=== PATIENT | female | born 1990 | race Caucasian/White ===

== ENCOUNTER → 2016-10-19 | Outpatient (CLI) | payer BC ==
--- NOTE | 2016-10-19 09:55 | DIAGNOSTIC IMAGING REPORT ---
LEFT SHOULDER 3 VIEWS CLINICAL HISTORY: Chronic left shoulder pain. FINDINGS: 3 views of the left shoulder are obtained. No prior studies are available for comparison at the time of dictation. The skeletal structures are well mineralized. No fracture or dislocation is seen. The glenohumeral and acromioclavicular joints appear maintained. The overlying soft tissues are within normal limits. The imaged left lung parenchyma appears clear. IMPRESSION: Unremarkable radiographic assessment of the left shoulder. Electronically signed by: Jose Paul M.D. 10/19/2016 9:53 AM Dictated Date/Time: 10/19/2016 9:53 AM
== END | disposition home or self-care (01) ==
LOC: C.RDSM 09:40
PROVIDERS: ATTEND Internal Medicine
DX: M25.519 Pain in unspecified shoulder (principal)

== ENCOUNTER → 2017-04-24 | Outpatient (CLI) | payer OTHER | END | disposition home or self-care (01) | LOC: C.PAPS 16:38 | PROVIDERS: ATTEND Physician Assistant | DX: Z12.4 Encounter for screening for malignant neoplasm of cervix (principal); R87.610 Atypical squamous cells of undetermined significance on cytologic smear of cervix (ASC-US) ==

== ENCOUNTER 2020-11-13 10:10 | Inpatient (IN) ==
[2020-11-13] MEDS ORDERED: OXYTOCIN 30 UNITS/500 ML BAG IV PRN ×2 (15:22)
--- NOTE | 2020-11-13 15:26 | History & Physical Report ---
Date of Service November 13, 2020 Assessment & Plan (1) Post-dates : Plan: Plan for IOL with pitocin. Plans for epidural. Wilder bulb already fell out. Admission and Anticipated Discharge Date Admission Date: November 13, 2020 History of Present Illness Chief Complaint: IOL postdates Primary Care Provider: IDANIA Archer 30yo @ 40 4, IOL for postdates. GBS+. Otherwise uncomplicated . Allergies Allergy/AdvReac Type Severity Reaction Status Date / Time No Known Allergies Allergy Verified 11/12/20 19:45 Home Medications Medication Instructions Recorded Confirmed Type prenat.vits,gama,nps-svhm-nlleo 1 tab PO DAILY 03/23/20 11/13/20 History Patient History Medical History (Updated 11/13/20 @ 13:15 by Ольга Camacho RN) Interstitial cystitis Surgical History H/O colposcopy with cervical biopsy 03/26/[address] Harrison, benign S/P tooth extraction Family History Grandmother Skin cancer Grandfather Skin cancer Uncle Skin cancer Mother Diabetes Father Hypertension Dyslipidemia Sister Seizure Other Nephrolithiasis Rheumatoid arthritis Denies family history of Ovarian cancer Prostate cancer Myocardial infarction Breast cancer Colorectal cancer Social History (Updated 03/23/20 @ 13:11 by Carla Trujillo) Smoking Status: Never smoker Hx Alcohol Use: No Hx Substance Use: No Preferred Language: Maori Communication Ability: Effective Visual Impairment: No Limitations Hearing Ability: Normal [employer] Assistant [employer] Required: No Beliefs That Will Affect Care: None marital status: marital status details: Dg (33) [phone] Current Living Situation: Spouse Current Living Situation Comment: lives with spouse, 1 cat, 1 dog, spouse to change litter. current occupational status: employed current occupation: [employer] @ [employer] Other Information That Helps Us Care for You: No Feels Safe at Home: Yes Safety Concerns: Feels Safe At This Time Childhood Exposure to Second-Hand Smoke: No caffeine: Yes Dental Care, Regularly: Yes Physical Activity Frequency: 5-6 Times per Week Seatbelt Use: always Sunscreen Use: Yes Assistive Devices: None Review of Systems All systems reviewed & are unremarkable except as noted in HPI & below Physical Exam Constitutional: WD/WN, vitals as above Respiratory: normal respiratory effort, lungs clear to auscultation no respiratory distress Cardiovascular: Rate/Rhythm: regular rate and regular rhythm Gastrointestinal (Abdomen): Inspection/Auscultation: abdomen normal to inspection Percussion/Palpation: abdomen soft; abdomen nontender Gravid. No s/s chorio or abruption. Skin: no rashes, warm and dry Psychiatric: A+Ox3, euthymic affect Genitourinary: SVE 5-6/70/-2 Results & Data ([facility]) Vital Signs (Past 12 Hours) Vital Signs Temp Pulse Resp BP 11/13/20 13:14 37.2 C 110 H 18 130/77 11/13/20 13:11 110 H 130/77 Monitoring External Monitor FHT Cat 1 Tocodynamometer [place] rare Coding Level of Care Code None Diagnoses Post-dates O48.0
[2020-11-13] MEDS: LACTATED RINGER'S 1,000 ML IV PRN ×2 (15:27→19:55)
[2020-11-13] MEDS ORDERED: PENICILLIN G POTASSIUM 6 MU in DEXTROSE 5% 250 ML IV ONE (15:45)
[2020-11-13 15:56] LABS: Hematocrit (blood only) 39.1 % (37-47); Hemoglobin 13.6 g/dL (12.0-16.0); Mean Corpuscular Hemoglobin 30.1 pg (25-34); Mean Corpuscular Hgb Conc 34.8 g/dL (32-36); Mean Corpuscular Volume 86.5 fL (80-100); Mean Platelet Volume 9.7 fL (7.4-10.4); Platelet Count 249 K/uL (130-400); RDW Coefficient of Variation 14.4 % (11.5-14.5); RDW Standard Deviation 44.6 fL (36.4-46.3); Red Blood Count 4.52 M/uL (4.2-5.4); White Blood Count 16.47 K/uL (4.8-10.8)
[2020-11-13] MEDS ORDERED: SODIUM CHLORIDE 0.9% INJ 10 ML VIAL ONE ×2 (19:15→22:39)
[2020-11-13] MEDS ORDERED: ePHEDrine sulfate 50 MG/ML AMP ONE (19:15)
[2020-11-13] MEDS ORDERED: fentaNYL citrate 100 MCG/2 ML VIAL ONE (19:16)
[2020-11-13] MEDS ORDERED: BUPIVACAINE 0.25% 30 ML VIAL ONE ×2 (19:16→22:40)
[2020-11-13] MEDS ORDERED: fentaNYL 2MCG/ML ROPIVACAINE 1.25MG/ML 100 ML BAG EPI ONE (19:16)
[2020-11-13] MEDS ORDERED: diphenhydrAMINE 50 MG/ML VIAL IV PRN (19:23)
[2020-11-13] MEDS ORDERED: ePHEDrine sulfate 50 MG/ML AMP IV PRN (19:23)
[2020-11-13] MEDS ORDERED: NALOXONE HCL 1 MG in SODIUM CHLORIDE 0.9% 1000ML 1,000 ML IV PRN (19:23)
[2020-11-13] MEDS ORDERED: ONDANSETRON INJ 2 MG/ML 2 ML VIAL IV PRN (19:23)
[2020-11-13] MEDS ORDERED: NALOXONE HCL 0.4 MG/1 ML VIAL/CARP IV PRN (19:23)
[2020-11-13] MEDS ORDERED: NALBUPHINE HCL INJ 10 MG/ML AMP IV PRN (19:23)
--- NOTE | 2020-11-13 19:31 | Anesthesiology Consultation ---
Date of Service November 13, 2020 Assessment & Plan Chart Review Chart Review: Patient NOT seen in Pre Admission Testing and Acceptable Risk for Labor Epidural Consults Requested none ASA ASA2 Proposed Anesthesia Anesthesia Type: Labor Epidural and CSE Risk / Benefits Reviewed With: PT / POA / Parent / Guardian, Accepts Plan and Informed Consent Obtained History Height/Weight Height: 5 ft 6.5 in Weight: 92.533 kg Allergies Allergy/AdvReac Type Severity Reaction Status Date / Time No Known Allergies Allergy Verified 11/12/20 19:45 Medications Home Medications Medication Instructions Recorded Confirmed Last Taken prenat.vits,gama,uju-uohn-pqsqz 1 tab PO DAILY 03/23/20 11/13/20 11/11/20 Active Medications Generic Name Dose Route Start Last Admin Trade Name Freq PRN Reason Stop Dose Admin Lactated Ringer's 1,000 mls @ 125 mls/hr 11/13/20 15:22 11/13/20 18:50 Lr IV 11/15/20 15:21 125 mls/hr .Q8H PRN Infusion L&D Protocol Protocol Oxytocin 30 units in 500 mls @ 11 mls/hr 11/13/20 15:22 11/13/20 18:51 Pitocin IV 11/15/20 15:21 0.66 units/hr .Q24H PRN 11 mls/hr Labor Induction/Augmentation Titration Protocol 0.66 UNITS/HR NPO Date Last Intake of Fluids: 11/13/20 Time Last Intake of Fluids: 18:00 Date Last Intake of Solids: 11/13/20 Time Last Intake of Solids: 12:00 Past Medical History Medical History Acid reflux Hyperlipidemia Interstitial cystitis Exercise / Class Metabolic Activity II 4-5 Yardwork/Stairs/Walk up hill Past Family History Family History Grandmother Skin cancer Grandfather Skin cancer Uncle Skin cancer Mother Diabetes Father Hypertension Dyslipidemia Sister Seizure Other Nephrolithiasis Rheumatoid arthritis Denies family history of Ovarian cancer Prostate cancer Myocardial infarction Breast cancer Colorectal cancer Past Surgical History Surgical History H/O colposcopy with cervical biopsy 03/26/[address] Hardyk, benign S/P tooth extraction Past Anesthesia History No Hx of Anesthesia Complications and No Family Hx of Anesthesia Complications History of PONV No Hx of PONV and No Hx of Motion Sickness Social History Smoking Status: Never smoker Hx Alcohol Use: No Alcohol type: beer, wine and hard liquor Hx Substance Use: No substance use type: does not use Review of Systems no chest pain or sob Physical Exam Vital Signs Last Vital Signs Temp 37.2 C 11/13/20 13:14 Pulse 95 H 11/13/20 19:28 Resp 16 11/13/20 18:03 BP 131/87 11/13/20 19:03 Pulse Ox 100 11/13/20 19:28 ENMT Mouth: no TMJ abnormality Thyromental Distance: > or= 3.5 Finger Breadths Mallampati Class: II Neck normal visual inspection Respiratory normal respiratory effort Auscultation: lungs clear to auscultation bilaterally Cardiovascular Rate/Rhythm: regular rate and regular rhythm Musculoskeletal Spine: normal cervical ROM Neurologic moves all extremities Psychiatric Orientation: alert and oriented x 3 Testing Laboratory Results 11/13/20 15:48
[2020-11-13] MEDS: PENICILLIN G POTASSIUM 3 MU in DEXTROSE 5% 100 ML IV PRN (19:54)
--- NOTE | 2020-11-13 21:02 | Labor Progress Brief Note ---
Date of Service November 13, 2020 Subjective Comfortable with epidural. FHT Cat 1 [place]envil Q 2 SVE 6/70/-2 AROM clear fluid. Continue labor. Assessment & Plan Admission and Anticipated Discharge Date Admission Date: November 13, 2020 Results & Data ([facility]) Vital Signs (Past 12 Hours) Vital Signs Temp Pulse Resp BP Pulse Ox 11/13/20 20:58 98 H 100 11/13/20 20:53 97 H 98 11/13/20 20:50 88 128/79 11/13/20 20:48 99 H 98 11/13/20 20:43 96 H 98 11/13/20 20:38 91 H 98 11/13/20 20:35 81 131/81 11/13/20 20:33 88 99 11/13/20 20:28 79 97 11/13/20 20:23 83 98 11/13/20 20:20 80 140/73 11/13/20 20:18 84 98 11/13/20 20:16 20 11/13/20 20:13 80 98 11/13/20 20:08 82 99 11/13/20 20:03 88 133/63 97 11/13/20 20:01 83 18 128/69 11/13/20 20:00 18 11/13/20 19:59 81 132/79 11/13/20 19:58 88 97 11/13/20 19:57 94 H 126/72 11/13/20 19:55 90 18 120/74 11/13/20 19:53 93 H 126/75 98 11/13/20 19:51 83 137/72 11/13/20 19:50 18 11/13/20 19:49 84 136/76 11/13/20 19:48 84 97 11/13/20 19:47 91 H 141/77 H 11/13/20 19:45 89 18 137/76 11/13/20 19:43 88 138/79 98 11/13/20 19:41 93 H 127/84 11/13/20 19:38 86 99 11/13/20 19:33 89 100 11/13/20 19:28 95 H 100 11/13/20 19:05 36.4 C L 18 11/13/20 19:03 93 H 131/87 11/13/20 18:03 85 16 124/72 11/13/20 13:14 37.2 C 110 H 18 130/77 11/13/20 13:11 110 H 130/77 Coding Level of Care Code None
[2020-11-13] MEDS ORDERED: NURSING L&D Epidural Breakthrough Pain Update ONE (22:06)
--- NOTE | 2020-11-13 23:06 | Labor Progress Brief Note ---
Date of Service November 13, 2020 Subjective Comfortable. FHT Cat 2 variables [place] Q 2 //-1 Reposition, continue labor. Assessment & Plan Admission and Anticipated Discharge Date Admission Date: November 13, 2020 Results & Data ([facility]) Vital Signs (Past 12 Hours) Vital Signs Temp Pulse Resp BP Pulse Ox 11/13/20 23:05 94 H 94 11/13/20 23:03 94 H 96 11/13/20 22:58 102 H 96 11/13/20 22:54 81 94 11/13/20 22:53 79 94 11/13/20 22:50 85 141/80 H 11/13/20 22:48 92 H 97 11/13/20 22:43 87 98 11/13/20 22:42 90 93 11/13/20 22:38 79 97 11/13/20 22:35 81 132/78 11/13/20 22:33 89 98 11/13/20 22:28 82 96 11/13/20 22:23 79 96 11/13/20 22:20 79 129/74 11/13/20 22:18 78 95 11/13/20 22:13 94 H 98 11/13/20 22:08 93 H 98 11/13/20 22:05 83 137/81 11/13/20 22:03 87 97 11/13/20 21:58 86 98 11/13/20 21:53 96 H 98 11/13/20 21:50 84 139/94 11/13/20 21:48 82 98 11/13/20 21:43 85 97 11/13/20 21:38 83 98 11/13/20 21:35 89 135/82 11/13/20 21:33 88 97 11/13/20 21:28 90 97 11/13/20 21:23 90 96 11/13/20 21:20 81 122/82 11/13/20 21:18 91 H 98 11/13/20 21:13 96 H 96 11/13/20 21:08 98 H 98 11/13/20 21:05 84 134/83 11/13/20 21:04 95 H 94 11/13/20 21:03 93 H 99 11/13/20 21:02 36.7 C 18 11/13/20 20:58 98 H 100 11/13/20 20:53 97 H 98 11/13/20 20:50 88 128/79 11/13/20 20:48 99 H 98 11/13/20 20:43 96 H 98 11/13/20 20:38 91 H 98 11/13/20 20:35 81 131/81 11/13/20 20:33 88 99 11/13/20 20:31 18 11/13/20 20:28 79 97 11/13/20 20:23 83 98 11/13/20 20:20 80 140/73 11/13/20 20:18 84 98 11/13/20 20:16 20 11/13/20 20:13 80 98 11/13/20 20:08 82 99 11/13/20 20:03 88 133/63 97 11/13/20 20:01 83 18 128/69 11/13/20 20:00 18 11/13/20 19:59 81 132/79 11/13/20 19:58 88 97 11/13/20 19:57 94 H 126/72 11/13/20 19:55 90 18 120/74 11/13/20 19:53 93 H 126/75 98 11/13/20 19:51 83 137/72 11/13/20 19:50 18 11/13/20 19:49 84 136/76 11/13/20 19:48 84 97 11/13/20 19:47 91 H 141/77 H 11/13/20 19:45 89 18 137/76 11/13/20 19:43 88 138/79 98 11/13/20 19:41 93 H 127/84 11/13/20 19:38 86 99 11/13/20 19:33 89 100 11/13/20 19:28 95 H 100 11/13/20 19:05 36.4 C L 18 11/13/20 19:03 93 H 131/87 11/13/20 18:03 85 16 124/72 11/13/20 13:14 37.2 C 110 H 18 130/77 11/13/20 13:11 110 H 130/77 Coding Level of Care Code None
[2020-11-14] MEDS: PENICILLIN G POTASSIUM 3 MU in DEXTROSE 5% 100 ML IV PRN ×3 (00:18→07:48)
[2020-11-14] MEDS: fentaNYL 2MCG/ML ROPIVACAINE 1.25MG/ML 100 ML BAG EPI PRN ×2 (02:15→07:45)
[2020-11-14] MEDS ORDERED: SODIUM CHLORIDE 0.9% INJ 10 ML VIAL ONE (02:53)
[2020-11-14] MEDS ORDERED: BUPIVACAINE 0.25% 30 ML VIAL ONE (02:53)
[2020-11-14] MEDS: LACTATED RINGER'S 1,000 ML IV PRN (06:59)
[2020-11-14] MEDS ORDERED: METHYLERGONOVINE MALEATE 0.2 MG/ML AMP ONE (08:16)
--- NOTE | 2020-11-14 09:06 | Delivery Summary ---
Vaginal Delivery Summary Date of Service November 14, 2020 Vaginal Delivery Summary and 3rd Degree LAC Vaginal Delivery Summary: Pre-delivery diagnoses: 30yo @ 40 5/7, IOL for postdates, GBS+ Post-delivery diagnoses: same, 3rd degree perineal laceration Procedure: spontaneous vaginal delivery, repair of 3rd degree perineal laceration, manual extraction of placenta Surgeon: Kathy Ludwig DO Complications: none Findings: Viable female . Apgars: 8/9 . Weight pending, please see nursery records Estimated blood loss: 500ml Description of delivery: The patient progressed to complete with epidural anesthesia. She then began to push. She spontaneously vaginally delivered a viable from the cephalic presentation. The head delivered in MICHAEL position. The anterior shoulder delivered, followed by the posterior shoulder, followed by the body. The baby was placed on mother's abdomen and a spontaneous cry was heard. Delayed cord clamping was employed, and the cord was doubly clamped and cut. Cord blood was obtained. Attempt at delivery of placenta, and umbilical cord began to separate from placenta. The placenta was then delivered via manual extraction. The uterus and vagina were swept of clots and debris - no remaining placenta in uterus. IV pitocin was given. The uterus became firm. The cervix, vagina, and perineum were inspected and a 3rd degree laceration was noted, and repaired with 3-0 chromic at the anal sphincter, then remainder repaired with 3-0 vicryl. Tissue friable, small amounts of oozing, palomo powder used to obtain hemostasis. Excellent hemostasis was observed. Will give 24h ancef for manual extraction of placenta. The mother and baby are recovering in stable and good condition in the room. Sponge, needle and instrument counts were correct x 2. Kathy Ludwig DO [facility] Vaginal Delivery Charge Vaginal Delivery Codes: 04812 global code for the antepartum, delivery, and post- Delivery Type Details: and 3rd Degree LAC
[2020-11-14] MEDS ORDERED: HYDROCORTISONE ACETATE 25 MG SUPP PR PRN (09:20)
[2020-11-14] MEDS ORDERED: METHYLERGONOVINE MALEATE 0.2 MG/ML AMP IM ONE (09:20)
[2020-11-14] MEDS ORDERED: bisacodyL 10 MG SUPP PR PRN (09:20)
[2020-11-14] MEDS ORDERED: OXYTOCIN 30 UNITS/500 ML BAG IV PRN (09:20)
[2020-11-14] MEDS ORDERED: BENZOCAINE 20% AER SPR 82.5 GM CAN EXT PRN (09:20)
[2020-11-14] MEDS ORDERED: ACETAMINOPHEN 325 MG TAB PO PRN (09:20)
[2020-11-14] MEDS ORDERED: DIPHTHERIA/TETANUS/PERTUSSIS 0.5 ML SYR/VIAL IM ONE (09:20)
[2020-11-14] MEDS ORDERED: oxyCODONE/ACETAMINOPHEN 5mg/325mg TAB PO PRN (09:20)
[2020-11-14] MEDS ORDERED: SUPERCREAM 0.870% 15 GM JAR EXT PRN (09:20)
--- NOTE | 2020-11-14 09:52 | Anesthesia Procedure Note ---
Date of Service November 14, 2020 Anesthesia Post Epidural Note Vital Signs Vital Signs: Temp Pulse Resp BP Pulse Ox 37.0 C 80 18 116/70 97 11/14/20 07:02 11/14/20 09:49 11/14/20 09:35 11/14/20 09:49 11/14/20 08:43 Pain Intensity Bilateral Back: Pain Intensity: 8 Notes Mental Status: alert / awake / arousable Nausea / Vomiting: adequately controlled Pain: adequately controlled Airway Patency, RR, SpO2: stable & adequate BP & HR: stable & adequate Hydration State: stable & adequate Neuraxial Anesthesia: was administered and sensory block is resolving Anesthetic Complications: no major complications apparent Epidural: Removed without complications and With tip intact
[2020-11-14] MEDS: IBUPROFEN 600 MG TAB PO PRN ×2 (10:24→15:34)
[2020-11-14] MEDS: ceFAZolin 1000MG 1,000 MG/7.5 ML SYR IV SCH ×2 (14:52→22:10)
[2020-11-14] MEDS ORDERED: LIDOCAINE 2% JELLY 5 ML TUBE ONE (17:40)
[2020-11-14] MEDS: DOCUSATE SODIUM 100 MG CAP PO SCH (20:47)
[2020-11-15] MEDS: ceFAZolin 1000MG 1,000 MG/7.5 ML SYR IV SCH (05:19)
[2020-11-15] MEDS: IBUPROFEN 600 MG TAB PO PRN ×3 (05:19→21:09)
[2020-11-15 05:47] LABS: Hematocrit (blood only) 31.1 % (37-47); Hemoglobin 10.4 g/dL (12.0-16.0)
--- NOTE | 2020-11-15 08:24 | Obstetrical Progress Note ---
Date of Service November 15, 2020 Assessment & Plan (1) state: 30 yo PP1 from , doing well -Meeting all pp milestones -O+/rubella immune/ -Lin to be removed around 10AM, discussed timed voids and pt verbalized understanding. -f/u 6 weeks for appt, plan for d/c tomorrow Subjective Ambulation: ambulating normally Voiding: lin catheter in place (denies feeling UTI s/s anymore.) Passing Gas:: Yes Diet Tolerance:: regular diet Lochia:: Moderate Feeding Type:: breast feeding Pain well managed with medication. Lin placed last night due to urinary retention w/ large return of urine following bladder scan >800cc, pt has hx of it in the past as well. Completing 24hrs of ancef due to manual extraction and 3rd degree Review of Systems Denies fevers, chills, n/v, ROY, CP, SOB Physical Exam Constitutional WD/WN, vitals as above no acute distress Respiratory normal respiratory effort; no respiratory distress and no labored breathing Cardiovascular Rate/Rhythm: regular rate and regular rhythm Gastrointestinal (Abdomen) Percussion/Palpation: abdomen soft; abdomen nontender fundus firm at umbilicus and NT Musculoskeletal BLE symmetric, nonerythematous, nontender Genitourinary Lin draining clear urine Results & Data ([facility]) Vital Signs (Past 12 Hours) Vital Signs Temp Pulse Resp BP 11/15/20 05:00 98.1 F 18 122/80 11/14/20 23:30 97.9 F 81 18 120/73
[2020-11-15] MEDS: PRENATAL VITAMIN 1 TAB PO SCH (08:41)
[2020-11-15] MEDS: DOCUSATE SODIUM 100 MG CAP PO SCH ×2 (08:41→21:08)
[2020-11-15] MEDS ORDERED: bisacodyL 5 MG TABEC PO SCH (20:00)
[2020-11-16] MEDS: IBUPROFEN 600 MG TAB PO PRN ×2 (01:09→06:09)
--- NOTE | 2020-11-16 07:19 | Obstetrical Progress Note ---
Date of Service <Lis Herman DO - Last Filed: 11/16/20 07:18> November 16, 2020 Assessment & Plan <Lis Herman DO - Last Filed: 11/16/20 07:18> (1) Encounter for care and examination after delivery: 30yo post day 2, complicated by 3rd degree requiring manual extraction, doing well -vital signs reviewed and WNL (Tmax 36.6) -Hemoglobin 10.4 (8/1) - Blood type O+, GBS+, rubella immune -Encourage Ambulation, monitor and control pain with tylenol motrin PRN, continue regular diet, monitor lochia -encourage breast feeding -Pt counselled on discharge instructions Day #:: 2 <Christina Rasmussen MD - Last Filed: 11/16/20 07:36> (1) Encounter for care and examination after delivery: Subjective <Lis Herman DO - Last Filed: 11/16/20 07:18> Ambulation: ambulating normally Voiding: no voiding problems Passing Gas:: Yes Diet Tolerance:: regular diet Lochia:: Small Feeding Type:: breast feeding Current Pain Level(1-10): 5 Pain well controlled on medication Review of Systems Negative fever chills headache dizziness nausea vomitting diarrhea constipation SOB palpitations Physical Exam <Lis Herman DO - Last Filed: 11/16/20 07:18> General: Alert, oriented. No acute distress. Cardiac: Regular rate and rhythm, no murmurs/rubs/gallops. Respiratory: Clear to auscultation bilaterally a/p, no wheezes/rales/rhonchi. No increased work of breathing. Symmetrical chest rise. No respiratory distress. Abdomen: Soft, nontender, nondistended. Bowel sounds present. Uterus: Uterine fundus firm, palpable [] cm below umbilicus. Lower Extremities: No lower extremity edema or swelling. No deep calf pain. Darlene's negative bilaterally.. Results & Data ([facility]) <Lis Herman DO - Last Filed: 11/16/20 07:18> Vital Signs (Past 12 Hours) Vital Signs Temp Pulse Resp BP Pulse Ox 11/15/20 23:30 36.6 C 76 16 128/79 99 Medications Administered Current Inpatient Medications Acetaminophen (Acetaminophen 325 Mg Tab) 650 mg PO Q6H PRN PRN Reason: Pain/ROY/Fever Stop: 12/14/20 09:19 Last Admin: 11/14/20 20:07 Dose: 650 mg Documented by: Benzocaine (Benzocaine 20% Aer Spr 82.5 Gm Can) 1 appln EXT PRN PRN PRN Reason: Perineal Discomfort Stop: 12/14/20 09:19 Last Admin: 11/14/20 10:24 Dose: 1 appln Documented by: Bisacodyl (Bisacodyl 10 Mg Supp) 10 mg RI DAILY PRN PRN Reason: No BM on 2nd post- day Stop: 12/14/20 09:19 Cocaine HCl (Supercream 0.870% 15 Gm Jar) 1 gm EXT BID PRN PRN Reason: Hemorrhoidal Inflammation Stop: 11/28/20 09:19 Last Admin: 11/14/20 10:24 Dose: 1 appln Documented by: Docusate Sodium (Docusate Sodium 100 Mg Cap) 100 mg PO DAILY@ [facility] Stop: 12/14/20 20:59 Last Admin: 11/15/20 21:08 Dose: 100 mg Documented by: Hydrocortisone (Hydrocortisone Acetate 25 Mg Supp) 25 mg RI BID PRN PRN Reason: Hemorrhoidal Inflammation Stop: 12/14/20 09:19 Oxytocin (Pitocin) 30 units in 500 mls @ 333.333 mls/hr IV .Q1H30M PRN; Protocol PRN Reason: Bleeding Control Stop: 12/14/20 09:19 Ibuprofen (Ibuprofen 600 Mg Tab) 600 mg PO Q4H PRN PRN Reason: Pain/ROY/Cramping/Fever Stop: 12/14/20 09:19 Last Admin: 11/16/20 06:09 Dose: 600 mg Documented by: Oxycodone/Acetaminophen (Oxycodone/Acetaminophen 5mg/325mg Tab) 1 tab PO Q4H PRN PRN Reason: Pain not relieved by... Stop: 11/28/20 09:19 Prenat Multivit/[place]/Iron/Folic Ac ( Vitamin 1 Tab) 1 tab PO DAILY@08 [facility] Stop: 12/15/20 07:59 Last Admin: 11/15/20 08:41 Dose: 1 tab Documented by: <Christina Rasmussen MD - Last Filed: 11/16/20 07:36> Co-Signing Physician Notes Resident Physician Supervision Note: I was present with Dr. Herman during the history and exam. I discussed the case with the resident and agree with the findings and plan as documented in the note. Any exceptions or clarifications are listed here: PP2 s/p c/b 3rd degree, manual extraction of placenta. s/p lin removal yesterday and voiding well, doing ok with timed voids and feels empty. VSS, exam benign and wnl, fundus firm below umbilicus. Stable for d/c home today Documented By: Christina Rasmussen MD Resident Activity Tracking <Lis Herman DO - Last Filed: 11/16/20 07:18> Resident Involvement: Resident Care Provided Care Provided: OB Delivery
[2020-11-16] MEDS: DOCUSATE SODIUM 100 MG CAP PO SCH (08:51)
[2020-11-16] MEDS: PRENATAL VITAMIN 1 TAB PO SCH (08:51)
== END 2020-11-16 10:59 | disposition home or self-care (01) | DRG 768 ==
LOC: 4S1 13:02 → 4S2 11-14 11:40